=== PATIENT | female | born 1950 | race Caucasian/White ===

== ENCOUNTER 2017-12-15 14:14 | Emergency (ER) | payer MEDICARE ==
[~2017-12-15] VITALS: Ht 162.6 cm; Wt 116.8 kg
[2017-12-15] MEDS ORDERED: VENTOLIN HFA18 GM INH (15:43)
[2017-12-15] MEDS ORDERED: LEVAQUIN500 MG PO (15:43)
[2017-12-15] MEDS ORDERED: PREDNISONE20 MG PO (15:43)
== END 2017-12-15 16:15 | disposition home or self-care (01) ==
LOC: ED 14:14
DX: J18.9 Pneumonia, unspecified organism (principal)
CPT/HCPCS: 71045; 94640; 99283; J7512